=== PATIENT | female | born 1955 | race Caucasian/White ===

== ENCOUNTER → 2017-10-18 | Outpatient (CLI) | payer OTHER ==
--- NOTE | 2017-10-22 20:29 | RADIOLOGY REPORT PS360 ---
BILATERAL SCREENING MAMMOGRAM: CAD MAMMOGRAPHY SCREENING TECHNIQUE: Standard CC & MLO images were obtained. R2 CAD reviewed. COMPARISON: Today's studies compared to July 2016 and October. October 2009 HISTORY: 62-year-old. No hormones no new complaints noncontributory family history FINDINGS: Moderately dense breasts for age. This moderate inhomogeneous increased density along with mild asymmetry decreases sensitivity of mammography. Overall Stable appearing when compared to multiple previous studies, with no significant new areas of concern .. There has been no significant change. No dominant mass or suspicious calcifications are seen in either breast. Overall architecture is stable. Right breast stable follow-up in one year Left breast. Mild asymmetric density superior left breast stable since 2013 & medial breast similar to 2008 IMPRESSION: No significant new areas of concern . Bilateral follow-up in one year Moderately dense breast. . BI-RADS CATEGORY: 2 Benign RECOMMENDED FOLLOWUP: 6M 6MONTH FOLLOW-UP (A letter has been sent to the patient regarding the results of the study.)
== END ==
LOC: RAD 15:45
DX: Z12.31 Encounter for screening mammogram for malignant neoplasm of breast (principal)
CPT/HCPCS: G0202